=== PATIENT | female | born 2000 | race Caucasian/White ===

== ENCOUNTER 2024-09-02 06:03 | Inpatient (IN) ==
[~2024-09-02 06:03] MED LIST: KETAMINE HCL ONE; ULTANE GAS IN ONE
[2024-09-02] MEDS ORDERED: ANCEF VIAL 1 GRAM IVP ONE (06:32)
[2024-09-02] MEDS ORDERED: LR 1,000 ML IV 1,000 ML IV SCH (06:32)
[2024-09-02] MEDS: LR 1,000 ML IV 1,000 ML IV ONE ×2 (06:45→06:58)
[2024-09-02] MEDS: REGLAN INJ 10 MG VIAL ONE (06:54)
[2024-09-02] MEDS: ZOFRAN INJ 4 MG VIAL ONE (06:54)
[2024-09-02] MEDS: MARCAINE SPINAL ONE (06:54)
[2024-09-02] MEDS: XYLOCAINE 2 % (PLAIN) ONE (06:55)
[2024-09-02] MEDS: PRECEDEX INJ VIAL ONE (06:55)
[2024-09-02] MEDS: EPHEDRINE SULFATE INJ ONE (06:56)
[2024-09-02] MEDS: NEO-SYNEPHRINE INJ ONE (06:56)
[2024-09-02] MEDS: PEPCID 20 MG VIAL ONE (06:58)
[2024-09-02] MEDS: ANCEF VIAL 1 GRAM ONE (07:24)
[2024-09-02] MEDS: BREVIBLOC ONE (07:39)
[2024-09-02] MEDS: VERSED ONE (08:10)
[2024-09-02] MEDS: FENTANYL VIAL INJ 100 mcg ONE (08:10)
[2024-09-02] MEDS: DECADRON INJ ONE (08:16)
[2024-09-02] MEDS: PITOCIN ONE ×2 (08:21→08:42)
[2024-09-02] MEDS: TORADOL 30 MG VIAL ONE (08:38)
[2024-09-02] MEDS ORDERED: ZOFRAN INJ 4 MG VIAL IVP PRN ×2 (09:10→09:58)
[2024-09-02] MEDS ORDERED: BENADRYL INJ 50 MG VIAL IVP PRN ×2 (09:10→09:58)
[2024-09-02] MEDS: DILAUDID INJ ONE (09:11)
[2024-09-02] MEDS: DILAUDID INJ IVP PRN (09:41)
[2024-09-02] MEDS ORDERED: TORADOL 30 MG VIAL IVP PRN (09:58)
[2024-09-02] MEDS ORDERED: PERCOCET TAB 5/325 MG PO PRN (09:58)
[2024-09-02] MEDS ORDERED: NARCAN INJ IVP PRN (09:58)
[2024-09-02] MEDS: OXYTOCIN 20 UNIT/1,000 ML-NS 20 UNIT/1,000 ML PLAST..BAG IV SCH (09:58)
[2024-09-02] MEDS ORDERED: MYLICON TAB 80 MG CHEW PO PRN (09:58)
[2024-09-02] MEDS ORDERED: VISTARIL PO PRN (09:58)
[2024-09-02] MEDS ORDERED: REGLAN INJ 10 MG VIAL IVP PRN (09:58)
[2024-09-02] MEDS ORDERED: DEXTROSE 10% 1,000 ML IV ONE (10:11)
[2024-09-02] MEDS: MORPHINE SULFATE PCA 30 MG IVP PRN (11:05)
[2024-09-02] MEDS: ADACEL or BOOSTRIX TDaP VACCINE IM ONE (16:04)
[2024-09-02] MEDS: NEURONTIN CAP 100 MG PO SCH (16:32)
[2024-09-02] MEDS: COLACE CAP 100 MG PO SCH (21:44)
[2024-09-02] MEDS: ATARAX TAB 25 MG PO SCH (21:44)
[2024-09-02] MEDS: BUPRENORPHINE HCL 8 MG PO SCH (21:46)
[2024-09-03] MEDS: NS 250 ML IV 250 ML IV ONE ×2 (02:57→11:55)
[2024-09-03 05:28] LABS: HEMATOCRIT 14.4 % (36.0-47.0)
[2024-09-03] MEDS ORDERED: LEXAPRO ONE (08:14)
[2024-09-03] MEDS: PRENATAL PLUS PO SCH (08:42)
[2024-09-03] MEDS: LEXAPRO PO SCH (08:43)
[2024-09-03] MEDS: PERCOCET TAB 5/325 MG PO PRN (08:43)
[2024-09-03] MEDS: MOTRIN TAB 800 MG PO PRN (12:05)
[2024-09-03] MEDS: BACTROBAN TOPICAL OINT TOP SCH (13:46)
[2024-09-03 22:25] LABS: HEMATOCRIT 21.8 % (36.0-47.0)
[2024-09-03 22:27] LABS: HEMOGLOBIN 7.4 g/dL (12.0-16.0)
[2024-09-04 00:33] VITALS: O2SAT 99
[2024-09-04 07:31] VITALS: BP 108/51; PULSE 96; RESP 20; TEMP 97.4
[2024-09-04] MEDS: LEXAPRO ONE (08:18)
== END 2024-09-04 10:50 | disposition home or self-care (01) | DRG 788 ==
LOC: LD 06:03 → MED/SURG 10:02
PROVIDERS: ADMIT Specialist; ATTEND Specialist
DX: Z37.0 Single live birth; O99.343 Other mental disorders complicating pregnancy, third trimester; G47.09 Other insomnia; Z3A.38 38 weeks gestation of pregnancy; Z01.812 Encounter for preprocedural laboratory examination; F11.11 Opioid abuse, in remission; O99.013 Anemia complicating pregnancy, third trimester; O99.891 Other specified diseases and conditions complicating pregnancy; O40.3XX0 Polyhydramnios, third trimester, not applicable or unspecified; O32.0XX0 Maternal care for unstable lie, not applicable or unspecified; O24.420 Gestational diabetes mellitus in childbirth, diet controlled; O26.893 Other specified pregnancy related conditions, third trimester